=== PATIENT | female | born 1990 | race Caucasian/White ===

== ENCOUNTER 2025-07-23 09:21 | Outpatient (CLI) | payer MEDICARE ==
[2025-07-23 11:07] LABS: #Basophils 0.04 10x3/uL (0.0-0.2); #Eosinophils 0.07 10x3/uL (0.0-0.7); #Monocytes 0.23 10x3/uL (0.11-0.59); #Neutrophils 2.26 10x3/uL (1.40-6.50); %Basophils 1.2 % (0.0-1.0); %Eosinophils 2.1 % (0.0-10.0); %Lymphocytes 22.6 % (21.0-51.0); %Monocytes 6.8 % (0.0-10.0); %Neutrophils 67.3 % (42.0-75.0); Hematocrit 25.2 % (36.0-47.0); Hemoglobin 8.2 g/dL (12.0-16.0); Mean Corpuscular Hemoglobin 29.5 pg (27.0-31.0); Mean Corpuscular Volume 90.6 fL (78.0-98.0); Platelet Count 189 10x3/uL (130-400); Red Blood Cell (RBC) Count 2.78 mill/uL (4.20-5.40); White Blood Cell (WBC) Count 3.36 10x3/uL (4.8-10.8)
[2025-07-23 11:13] LABS: BHCG - Serum Negative (NEGATIVE); Pregs Control Background? CLEAR/WHITE (CLR/WHITE); Pregs Control Bar Appear? YES (CONTROL BAR)
[2025-07-23 11:16] LABS: Anion Gap 19 mmol/L (10-20); BUN (Urea Nitrogen) 47 mg/dL (7.0-18.7); Calc. Creatinine Clearance 0 mL/min (70-130); Calcium 9.0 mg/dL (7.8-10.44); Carbon Dioxide 28 mmol/L (22-29); Chloride 94 mmol/L (98-107); Glucose 294 mg/dL (70-105); Potassium 4.6 mmol/L (3.5-5.1); Sodium 136 mmol/L (136-145)
[2025-07-23 11:28] LABS: INR-International Normal Ratio 1.1; PTT 29.2 sec (22.9-36.1); Prothrombin Time 13.8 sec (12.0-14.7)
== END 2025-07-23 09:22 | disposition home or self-care (01) ==
LOC: LABBT 09:21
PROVIDERS: ATTEND Surgery
DX: Z01.818 Encounter for other preprocedural examination (principal); N18.6 End stage renal disease
CPT/HCPCS: 71046; 80048; 84703; 85025; 85610; 85730; 93005; 93010

== ENCOUNTER 2025-07-27 07:52 | Day surgery (SDC) | payer OTHER ==
[2025-07-23 09:45] VITALS: BMI 19.7
[2025-07-27 10:02] LABS: Potassium 5.4 mmol/L (3.5-5.1)
[2025-07-27] MEDS ORDERED: CEFAZOLIN 2 GM VIAL ONE (10:31)
[2025-07-27] MEDS ORDERED: PROPOFOL 20 ML ONE (10:43)
[2025-07-27] MEDS ORDERED: PROPOFOL 0 ML ONE (10:54)
[2025-07-27] MEDS ORDERED: fentaNYL PF 100 MCG/2 ML SYRINGE ONE (10:54)
[2025-07-27] MEDS ORDERED: PHENYLEPHRINE-NS 100 MCG/ML 10 ML SYRINGE ONE (11:02)
[2025-07-27] MEDS ORDERED: Heparin 5,000 UNITS/ML VIAL ONE (11:02)
[2025-07-27] MEDS ORDERED: Heparin 10,000 UNITS/ 10 ML VIAL ONE (11:02)
[2025-07-27] MEDS ORDERED: Bupivacaine 0.25% HCL 30 ML VIAL ONE (11:03)
[2025-07-27] MEDS ORDERED: Lidocaine 1% (PF) 30 ML VIAL ONE (11:03)
[2025-07-27] MEDS ORDERED: Ondansetron PF 4 MG/2 ML Vial ONE (11:15)
== END 2025-07-27 15:17 | disposition home or self-care (01) ==
LOC: SDC 07:52
PROVIDERS: ATTEND Surgery
PROC: 03180JV Bypass Left Brachial Artery to Superior Vena Cava with Synthetic Substitute, Open Approach (ICD-10-PCS; principal; 2025-07-27)
DX: N18.6 End stage renal disease (principal); Z99.2 Dependence on renal dialysis; I10 Essential (primary) hypertension; E11.9 Type 2 diabetes mellitus without complications
CPT/HCPCS: 36818; 82962; 84132; J1644; J2704; J2720; J3010; 36416; A6258; J0169; J0665; J1642; J2003; J2405; J3373